=== PATIENT | male | born 2000 | race Caucasian/White ===

== ENCOUNTER 2022-02-04 19:56 | Emergency (ER) | payer BC, OTHER ==
[2022-02-04] MEDS ORDERED: LIDOCAINE 1% INJ 10 ML VIAL ONE (20:02)
[2022-02-04] MEDS ORDERED: TETANUS,DIPTH,PERTUSS P/F (BOOSTRIX) 0.5 ML VIAL IM ONE ×2 (20:04→20:30)
[2022-02-04 20:18] VITALS: BP 137/89
--- NOTE | 2022-02-04 20:22 | ED Integumentary General ---
General Chief Complaint: Skin/Wound Problems Stated Complaint: LEG INJURY Nursing Triage Note: PT AMBULATORY INTO ER WITH COMPLAINT OF METAL SPLINTER IN LEG. PT WAS SPLITTING WOUND AND HIT HEAD OF AXE WITH LARGE IVELISSE CAUSING PIECE TO BREAK OFF AND STICK IN LEFT MEDIAL CALF. BLEEDING IS MINIMAL. NOT CURRENT ON TETANUS. Source: patient Exam Limitations: no limitations History of Present Illness Date Seen by Provider: Feb 04, 2022 Time Seen by Provider: 20:00 Initial Comments Patient to the ER by private conveyance from home with his significant other chief complaint that he was striking a hatchet splitting some wood with a hammer. A fragment of it flew off into his left anterior medial calf. He has not had a tetanus vaccine in the past 5 years. Allergies and Home Medications Allergies Coded Allergies: No Known Drug Allergies (Unverified , 02/04/22) Patient Home Medication List Home Medication List Reviewed: Yes Review of Systems Review of Systems Constitutional: No chills, No diaphoresis EENTM: No ear discharge, No hearing loss Respiratory: No cough, No short of breath Cardiovascular: No chest pain, No edema Gastrointestinal: No abdominal pain, No constipation Musculoskeletal: No back pain, No joint pain All Other Systems Reviewed Negative Unless Noted: Yes Past Gyhohtm-Hnddgt-Xdeyzr Hx Patient Social History Tobacco Use?: Yes Tobacco type used: Cigarettes Smoking Status: Current Everyday Smoker Use of E-Cig and/or Vaping dev: Yes E-Cig or Vaping type used: Nicotine Use of E-Cig and/or Vaping Andres: Current Everyday User Substance use?: Yes Substance type: Marijuana Substance frequency: Daily Alcohol Use?: Yes Alcohol type: Hard Liquor Alcohol Frequency: Rarely Pt feels they are or have been: No Immunizations Up To Date Influenza Vaccine Up-to-Date: No; Not Current Physical Exam Vital Signs Vital Signs - First Documented 02/04/22 20:01 Pulse 131 Resp 18 B/P (MAP) 137/89 (105) Pulse Ox 98 O2 Delivery Room Air Capillary Refill : Less Than 3 Seconds General Appearance: WD/WN, no apparent distress HEENT: PERRL/EOMI, pharynx normal Neck: full range of motion, normal inspection Cardiovascular: normal peripheral pulses, regular rate, rhythm Respiratory: no respiratory distress, no accessory muscle use Extremities: normal range of motion, normal inspection, no pedal edema, other (Small linear half centimeter wound on his midshaft anterior medial lower leg with a BB sized fragment of irregular metal) Procedures/Interventions I&D : Site: Left leg anterior medial calf Blade Size: 11 I & D Procedure: betadine prep (Chlorhexidine), sterile drapes applied Progress Cleaned the wound thoroughly with chlorhexidine and sterile saline, infiltrated with 2 and half cc of 1% lidocaine without epinephrine. Extended the wound about 3 mm and using forceps pulled out a 3 mm irregular metal fragment. Patient tolerated procedure well Progress/Results/Core Measures Results/Orders My Orders Orders - LUCIAN NIETO Dipht,Pertuss(Acell),Tet Adult (Boostrix (02/04/22 20:30) Lidocaine 1% Inj 10 Ml (Xylocaine 1% Inj (02/04/22 20:30) Medications Given in ED Current Medications Medications Dose Ordered Sig/Porsche Route Start Time Stop Time Status Last Admin Dose Admin Diphtheria/ Tetanus/Acell Pertussis 0.5 ml STK-MED ONCE IM 02/04/22 20:04 02/04/22 20:07 DC 02/04/22 20:08 0.5 ML Lidocaine HCl 10 ml STK-MED ONCE .ROUTE 02/04/22 20:02 02/04/22 20:04 DC 02/04/22 20:06 10 ML Vital Signs/I&O 02/04/22 20:01 Pulse 131 Resp 18 B/P (MAP) 137/89 (105) Pulse Ox 98 O2 Delivery Room Air Blood Pressure Mean: 105 Departure Impression Primary Impression: Retained metal fragment Disposition: HOME, SELF-CARE Condition: Stable Departure-Patient Inst. Decision time for Depature: 20:22 Patient Instructions: Foreign Body in Skin (DC) Add. Discharge Instructions: Keep the wound clean and dressed. Soap and water. If it becomes infected with redness extending up your leg, fever or drainage from the wound that looks purulent then you should return to your doctor for reevaluation. All discharge instructions reviewed with patient and/or family. Voiced understanding. LUCIAN NIETO Feb 04, 2022 20:22
[2022-02-04] MEDS ORDERED: LIDOCAINE 1% INJ 10 ML VIAL INJ ONE (20:30)
== END 2022-02-04 20:25 | disposition home or self-care (01) ==
LOC: EDUNIT# 19:56 → ER 19:57
DX: Z18.10 Retained metal fragments, unspecified (principal); F17.210 Nicotine dependence, cigarettes, uncomplicated; Z28.310 Unvaccinated for COVID-19
CPT/HCPCS: 90715